=== PATIENT | female | born 1950 | race Caucasian/White ===

== ENCOUNTER 2019-12-24 15:12 | Emergency (ER) | payer BC, OTHER ==
[~2019-12-24] VITALS: Ht 147 cm; Wt 58.9 kg
--- NOTE | 2019-12-24 15:21 | ED Lower Extremity ---
General Stated Complaint: L FOOT BRUISING Source: patient Exam Limitations: no limitations History of Present Illness Date Seen by Provider: Dec 24, 2019 Time Seen by Provider: 15:18 Initial Comments To ER with left foot bruising and pain. This began yesterday, she was sitting on the couch with her left foot folded beneath her. Her mother needed something so she stood up not realizing her foot was asleep. In doing so the left foot inverted, she felt and heard a popping sensation and has had pain with weightbearing since. She lives in [place] but is here caring for her mother. Onset: this evening Severity: moderate Pain/Injury Location: left foot Method of Injury: fell, twisted Modifying Factors: Worse With Movement Allergies and Home Medications Patient Home Medication List Home Medication List Reviewed: Yes Review of Systems Constitutional: see HPI EENTM: see HPI Respiratory: no symptoms reported Genitourinary: no symptoms reported Musculoskeletal: see HPI Skin: no symptoms reported Psychiatric/Neurological: No Symptoms Reported Past Ggvdrdl-Ggkvca-Soqqqz Hx Patient Social History Recent Foreign Travel: No Contact w/Someone Who Travel: No Physical Exam Vital Signs Vital Signs - First Documented 12/24/19 15:15 Temp 37.1 Pulse 68 Resp 16 B/P (MAP) 143/90 (107) Pulse Ox 98 O2 Delivery Room Air Capillary Refill : Height, Weight, BMI Height: '" Weight: lbs. oz. kg; BMI Method: General Appearance: WD/WN, no apparent distress Respiratory: no respiratory distress, no accessory muscle use Hips: bilateral hip non-tender, bilateral hip normal inspection, bilateral hip normal range of motion Legs: bilateral leg non-tender, bilateral leg normal inspection, bilateral leg normal range of motion Knees: bilateral knee non-tender, bilateral knee normal inspection, bilateral knee normal range of motion Ankles: bilateral ankle non-tender, bilateral ankle normal inspection, bilateral ankle normal range of motion Feet: left foot other (there is ecchymosis to the dorsal aspect of the foot over the fourth and fifth metatarsals. There is no swelling erythema or ecchymosis over the lateral malleolus. There is tenderness to palpation to the plantar surface of foot over the fifth metatarsal head. She has a strong dorsalis pedis pulse the foot is warm and distal sensation is intact.) Neurologic/Psychiatric: alert, normal mood/affect, oriented x 3 Progress/Results/Core Measures Results/Orders My Orders Orders - BUDDY SEN APRN Foot, Left, 3 Views (12/24/19 15:17) Vital Signs/I&O 12/24/19 15:15 Temp 37.1 Pulse 68 Resp 16 B/P (MAP) 143/90 (107) Pulse Ox 98 O2 Delivery Room Air Departure Communication (Admissions) This appears to be a zone 1 fracture, a pseudo-[place] fracture, we will place her in a walking boot weightbearing as tolerated. She is from [place] and will return there this evening. Impression Primary Impression: Fracture of foot Qualified Codes: S92.902A - Unspecified fracture of left foot, initial encounter for closed fracture Disposition: HOME, SELF-CARE Condition: Stable Departure-Patient Inst. Decision time for Depature: 15:33 Referrals: NO,LOCAL PHYSICIAN (PCP/Family) Primary Care Physician Patient Instructions: Foot Fracture (DC) Add. Discharge Instructions: Elevate the foot as much as possible to help with swelling and subsequently the pain. It is important to not walk too much until directed otherwise by a microbiology soil scientist (personal security specialist) or orthopedic surgeon. You should call tomorrow to make an appointment with one of these types of physicians within the next few weeks for recheck. Currently your fracture is nondisplaced, bearing weight when posed a risk of displacing the fracture fragments resulting in a higher risk of failure to heal. BUDDY SEN APRN Dec 24, 2019 15:21
--- NOTE | 2019-12-24 15:34 | Diagnostic Imaging Report ---
INDICATION: Left foot injury. Pain. EXAMINATION: Three views of the left foot were obtained. FINDINGS: Nondisplaced transverse fracture through the base of the 5th metatarsal. No other acute abnormality is evident. IMPRESSION: There is a nondisplaced fracture through the base of the 5th metatarsal. Dictated by: Dictated on workstation # [id number]
--- NOTE | 2019-12-24 15:43 | NUR ---
Movie Projectionist called for medium ortho boot.
[2019-12-24 16:20] VITALS: BP 143/90
== END 2019-12-24 16:22 | disposition home or self-care (01) ==
LOC: ER 15:14
DX: S92.902A Unspecified fracture of left foot, initial encounter for closed fracture (principal); X50.1XXA Overexertion from prolonged static or awkward postures, initial encounter
CPT/HCPCS: 73630